=== PATIENT | female | born 1935 | race Caucasian/White ===

== ENCOUNTER 2017-07-22 10:00 | Inpatient (IN) | payer MEDICAID, MEDICARE ==
[2017-07-22 10:48] LABS: Basophils % (Auto) 0.6 % (0.0-1.8); Eosinophils % (Auto) 0.8 % (0.0-4.3); Hematocrit 29.9 % (30.3-42.9); Hemoglobin 9.4 gm/dl (10.1-14.3); Lymphocytes # (Auto) 1.3 K/mm3 (1.2-5.4); Lymphocytes % (Auto) 27.1 % (13.4-35.0); Mean Corpuscular HGB Conc 32 % (30-34); Monocytes # (Auto) 0.5 K/mm3 (0.0-0.8); Monocytes % (Auto) 9.3 % (0.0-7.3); Platelet Count 172 K/mm3 (140-440); Red Blood Count 4.72 M/mm3 (3.65-5.03); Red Cell Distribution Width 17.2 % (13.2-15.2)
[2017-07-22 10:50] LABS: Mean Corpuscular Hemoglobin 20 pg (28-32); Mean Corpuscular Volume 63 fl (79-97)
[2017-07-22 10:59] LABS: INR 0.97 (0.87-1.13)
[2017-07-22 11:02] LABS: BUN/Creatinine Ratio 14; Blood Urea Nitrogen 13 mg/dL (7-17); Calcium 9.7 mg/dL (8.4-10.2); Hemolysis Index 1
--- NOTE | 2017-07-22 11:20 | Anesthesia Consultation ---
Anesthesia Consult and Med Hx Date of service: 07/22/17 - Airway Anesthetic Teeth Evaluation: Dentures ROM Head & Neck: Adequate Mental/Hyoid Distance: Adequate Mallampati Class: Class II Intubation Access Assessment: Probably Good - Pulmonary Exam CTA: Yes - Cardiac Exam Cardiac Exam: RRR - Pre-Operative Health Status ASA Pre-Surgery Classification: ASA3 Proposed Anesthetic Plan: General - Pulmonary Hx Smoking: No Hx Asthma: No Hx Respiratory Symptoms: No SOB: No COPD: No Hx Pneumonia: No Hx Sleep Apnea: No - Cardiovascular System Hx Hypertension: Yes (HL) Hx Coronary Artery Disease: Yes (s/p coronary stent x4) Hx Heart Attack/AMI: Yes (2002) Hx Percutaneous Transluminal Coronary Angioplasty (PTCA): Yes (2003) Hx Cardia Arrhythmia: No Hx Pacemaker: No Hx Internal Defibrillator: No Hx Valvular Heart Disease: No Hx Heart Murmur: No Hx Peripheral Vascular Disease: No - Central Nervous System Hx Neuromuscular Disorder: No Hx Seizures: No CVA: No Hx Back Pain: No Hx Psychiatric Problems: No - Endocrine Hx Renal Disease: No Hx End Stage Renal Disease: No Hx Cirrhosis: No Hx Liver Disease: No Hx Insulin Dependent Diabetes: No Hx Non-Insulin Dependent Diabetes: Yes Hx Thyroid Disease: Yes Hx Hypothyroidism: Yes Hx Hyperthyroidism: No - Hematic Hx Anemia: Yes Hx Sickle Cell Disease: No - Other Systems Hx Alcohol Use: No Hx Substance Use: No Hx Cancer: No Hx Obesity: No - Additional Comments Anesthesia Medical History Comments: OA
[2017-07-25] MEDS ORDERED: ANCEF/STERILE WATER 2 GM/20 ML 2 GM/20 ML SYRINGE IV NR (06:00)
[2017-07-25] MEDS: NACL 0.9% 1000 ML 1,000 ML IV SCH ×2 (07:05→18:43)
--- NOTE | 2017-07-25 07:21 | Anesthesia Day of Surgery ---
Anesthesia Day of Surgery - Day of Surgery Patient Examined: Yes Patient H&P Reviewed: Yes Patient is NPO: Yes Beta Blockers: Yes
[2017-07-25] MEDS ORDERED: GELFOAM TP ONE ×2 (07:25→10:41)
[2017-07-25] MEDS ORDERED: RIFADIN ONE (07:25)
[2017-07-25] MEDS ORDERED: HEPARIN 10,000 UNITS/10 ML ONE (07:25)
[2017-07-25] MEDS ORDERED: PROTAMINE SULFATE ONE (07:25)
[2017-07-25] MEDS ORDERED: MARCAINE 0.5% INFILTRATI ONE ×2 (07:25→09:27)
[2017-07-25] MEDS ORDERED: XYLOCAINE 1% MPF 5 mL ONE (07:25)
[2017-07-25] MEDS ORDERED: PAPAVERINE ONE (07:25)
[2017-07-25] MEDS ORDERED: NACL 0.9% 500 ML 500 ML ONE (07:26)
[2017-07-25] MEDS ORDERED: THROMBIN (BOVINE) TP ONE ×2 (07:26→10:41)
[2017-07-25] MEDS ORDERED: XYLOCAINE MPF 2% ONE (07:30)
[2017-07-25] MEDS ORDERED: DECADRON ONE (07:37)
[2017-07-25] MEDS ORDERED: QUELICIN ONE (07:37)
[2017-07-25] MEDS ORDERED: ZEMURON IV ONE (07:37)
[2017-07-25] MEDS ORDERED: ZOFRAN ONE (07:37)
[2017-07-25] MEDS ORDERED: DIPRIVAN 10 MG/ML IV ONE (07:38)
[2017-07-25] MEDS ORDERED: SUBLIMAZE ONE (07:38)
[2017-07-25] MEDS ORDERED: NEOSTIGMINE ONE (07:39)
[2017-07-25] MEDS ORDERED: ROBINUL ONE (07:39)
[2017-07-25] MEDS ORDERED: ePHEDrine SULFATE ONE (07:39)
[2017-07-25] MEDS ORDERED: NACL 0.9% IR ONE (09:27)
[2017-07-25] MEDS ORDERED: HEPARIN 10,000 UNITS/10 ML 2,000 UNIT in NACL 0.9% 500 ML 500 ML IR ONE (09:27)
[2017-07-25] MEDS ORDERED: RIFADIN 600 MG in NACL 0.9% 50 ML IR ONE (09:28)
[2017-07-25] MEDS ORDERED: NEO SYNEPHRINE/NS Syringe(OR USE) IV ONE (10:59)
[2017-07-25] MEDS ORDERED: PROTAMINE SULFATE IV ONE (11:04)
[2017-07-25] MEDS ORDERED: NORMODYNE IV ONE (11:34)
--- NOTE | 2017-07-25 11:49 | Operative Report ---
Operative Report Operative Report: Date of procedure: 07/25/2017 Pre-operative diagnosis: Left Carotid Artery Stenosis Post-operative diagnosis: Left Carotid Artery Stenosis Procedure(s): 1. Left Carotid Endarterectomy With Patch Angioplasty 2. Intraoperative Completion Duplex Surgeon: Janes Randall MD Color Coater: None Anesthesia: General Endotracheal Anesthesia EBL: 250 mL Findings: Successful left carotid endarterectomy with normalization of left internal carotid velocities on post endarterectomy intraoperative duplex. Specimen: Left Carotid Plaque Counts: Correct Complications: None Condition: Stable Indication: The patient is a 81-year-old female with a history of carotid artery stenosis who was referred to [place] with a symptomatic carotid artery stenosis. Her workup revealed greater than 80% stenosis. Cardiology evaluation demonstrated she was an adequate candidate for surgical intervention. She was given the risks, benefits, and alternative procedures and consented to the procedure. Description of Procedure: The patient was brought to the operating room and laid in supine position. After general endotracheal anesthesia was achieved the patient was placed in beachchair position with her head elevated and turned slightly to the right. The patient's neck and chest were prepped and draped in normal fashion. An oblique incision was then created along the anterior border of the sternocleidomastoid. The incision was then carried down to the facial vein using sharp dissection. The facial vein was then dissected out circumferentially, suture ligated and divided. The dissection was then carried down to the common carotid using sharp dissection. The common carotid artery was dissected out circumferentially taking care to avoid the vagus nerve which was identified and avoided. The artery was then controlled with a large vessel loop. The dissection was carried up along the external carotid and the superficial thyroid artery was identified dissected out circumferentially and controlled with a 2-0 silk. The external carotid was dissected out and controlled a small vessel loop. I then dissected out the internal carotid artery well above the plaque which was identified by a change in hue of the artery from yellow to blue and palpation of the artery over a right angle. I controlled the internal carotid artery with a small vessel and at this point the patient was systemically heparinized with heparin IV. Once the heparin had circulated for 3 minute I clamped the internal carotid artery followed by the common carotid and then the external Carotid artery. I created an arteriotomy extending from the common carotid into the internal carotid, well above the plaque, using an 11 blade and Saul scissors. I then flashed the internal carotid artery to check for adequate backbleeding. Once ensure there was adequate backbleeding reclamped the artery and used a [place] blade to dissect the plaque away from the artery. I used a right angle to continue the dissection of this plane from lateral to medial and then divided the plaque using Saul scissors. I then trimmed the plaque proximally using Saul and then teased the plaque away from the distal endpoint insuring that there were no areas of dissection or intimal flaps. These plaque forceps to remove all loose debris and then flushed the artery with heparinized saline. I then closed the artery using the Dacron patch and two 6-0 Prolenes in running fashion. Prior to completing the closure I flushed all arteries to remove all loose debris and then flushed the artery with heparinized saline. I then completed the closure in an flashed the internal carotid, reclamped and then removed the clamp from the common carotid followed by the external carotid and allowed any loose debris to flush into the external carotid. I then removed the clamp from the internal carotid artery. Hemostasis was achieved with repair sutures with 6-0 Prolene in interrupted fashion and a combination of direct pressure with Quick Clot. Once hemostasis was achieved I performed an intraoperative duplex that demonstrated no evidence of dissection and normalization of internal carotid velocity. I then anesthetized the wound with Exparel and closed in 2 layers using a 3-0 Vicryl in running in the deep dermal layer and a 4-0 Monocryl in running in the subcuticular layer and dressed it with the Surgiseal. The patient tolerated the procedure well all sponge needle and instrument counts were correct the patient was taken to the recovery area in stable condition.
[2017-07-25] MEDS ORDERED: INTROPIN DRIP 800 MG/D5W 250 ML 800 MG/250 ML BAG IV SCH (12:00)
[2017-07-25] MEDS ORDERED: ANCEF/NS 1 GM/50 ML 1 GM/50 ML BAG IV SCH (12:00)
[2017-07-25] MEDS ORDERED: NIPRIDE 50 MG in D5W 248 ML IV SCH (12:00)
[2017-07-25] MEDS ORDERED: NACL 0.9% 1000 ML 1,000 ML IV SCH (12:00)
[2017-07-25] MEDS ORDERED: ZOFRAN IV PRN (12:13)
[2017-07-25] MEDS: DILAUDID IV PRN ×4 (12:15→13:05)
[2017-07-25] MEDS ORDERED: DILAUDID ONE (12:15)
--- NOTE | 2017-07-25 12:52 | Post Anesthesia Evaluation ---
- Post Anesthesia Evaluation Patient Participated: Yes Airway Patent: Yes Stable Respiratory Function: Yes Nausea/Vomiting: No Temp > 96.8F: Yes Pain Manageable: Yes Adequeate Hydration: Yes Anesthesia Complications: No Block Receding Appropriately: Not Applicable
--- NOTE | 2017-07-25 12:55 | Anesthesia Day of Surgery ---
Anesthesia Day of Surgery - Day of Surgery Patient Examined: Yes Patient H&P Reviewed: Yes Patient is NPO: Yes
[2017-07-25] MEDS ORDERED: APRESOLINE IV PRN (14:41)
[2017-07-25] MEDS ORDERED: APRESOLINE ONE (14:41)
--- NOTE | 2017-07-25 14:45 | Consultation ---
History of Present Illness Consult date: 07/25/17 Requesting physician: LATOYA WELLINGTON Reason for consult: other (S/P Carotid End Arterectomy) History of present illness: PULMONARY/CCM CONSULT NOTE (Full dictation # [id number]) Please see dictated notes for full details Medications and Allergies Allergies Allergy/AdvReac Type Severity Reaction Status Date / Time atorvastatin calcium Allergy Unknown Unknown Verified 07/19/17 12:33 [From Lipitor] simvastatin [From Zocor] Allergy Unknown Unknown Verified 07/19/17 12:33 Sulfa (Sulfonamide Allergy Rash Verified 07/19/17 12:33 Antibiotics) Home Medications Medication Instructions Recorded Confirmed Last Taken Type Metformin HCl [Fortamet ER] 500 mg PO BID 02/07/13 07/22/17 07/24/17 History Simvastatin 20 mg PO QHS 02/07/13 07/22/17 07/24/17 History Aspirin [Aspirin BABY CHEW TAB] 81 mg PO QDAY #30 tab.chew 09/19/16 07/22/1710/07 06:38 Rx Levothyroxine [Synthroid] 0.05 mg PO QAM #60 tablet 09/19/16 07/22/17 07/25/17 06:38 Rx Atenolol [Tenormin] 50 mg PO DAILY 07/22/17 07/22/17 07/25/17 06:38 History Lisinopril [Zestril TAB] 5 mg PO QHS 07/22/17 07/22/17 07/24/17 History Prasugrel HCl 10 mg PO DAILY 07/22/17 07/22/17 07/24/17 History Active Meds: Active Medications Acetaminophen/Hydrocodone Bitart ([place] 5/325) 1 each PO Q6H PRN PRN Reason: Pain, Moderate (4-6) Atenolol (Tenormin) 50 mg PO DAILY SOCO Clopidogrel Bisulfate (Plavix) 75 mg PO QDAY SOCO Docusate Sodium (Colace) 100 mg PO BID SOCO Hydralazine HCl (Apresoline) 5 mg IV Q30MIN PRN PRN Reason: Hypertension Cefazolin Sodium (Ancef/Sterile Water 2 Gm/20 Ml) 2 gm in 20 mls @ 80 mls/hr IV PREOP NR; Protocol Stop: 07/25/17 23:00 Sodium Chloride (Nacl 0.9% 1000 Ml) 1,000 mls @ 42 mls/hr IV DIRECT SOCO Last Admin: 07/25/17 07:05 Dose: 42 mls/hr Dopamine HCl/Dextrose (Intropin Drip 800 Mg/D5w 250 Ml) 800 mg in 250 mls @ 1.854 mls/hr IV TITR SOCO; Protocol Sodium Nitroprusside 50 mg/ (Dextrose) 250 mls @ 3.7 mls/hr IV TITR SOCO; Protocol Sodium Chloride (Nacl 0.9% 1000 Ml) 1,000 mls @ 100 mls/hr IV DIRECT SOCO Cefazolin Sodium 1 gm/ Sodium (Chloride) 20 mls @ 2 mls/min IV Q8H SOCO Stop: 07/26/17 00:09 Insulin Aspart (Novolog) 0 units SUB-Q ACHS SOCO; Protocol Levothyroxine Sodium (Synthroid) 50 mcg PO DAILY@0600 SOCO Lisinopril (Zestril) 5 mg PO QHS [facility] Metformin HCl (Glucophage Xr) 500 mg PO BID SOCO Ondansetron HCl (Zofran) 4 mg IV ONCE PRN PRN Reason: Nausea And Vomiting Pravastatin Sodium (Pravachol) 40 mg PO QHS [facility] Physical Examination Vital signs: Vital Signs Temp Pulse Resp BP 98.2 F 68 18 144/78 07/22/17 10:25 07/22/17 10:25 07/22/17 10:25 07/22/17 10:25 Results - Laboratory Findings CBC and BMP: 07/22/17 10:35 07/22/17 10:35 PT/INR, D-dimer PT 13.4 Sec. (12.2-14.9) 07/22/17 10:35 INR 0.97 (0.87-1.13) 07/22/17 10:35 Abnormal lab findings: Abnormal Labs 07/22/17 07/22/17 07/25/17 10:35 10:35 07:09 Hgb 9.4 L Hct 29.9 L MCV 63 L MCH 20 L RDW 17.2 H [place] % (Auto) 9.3 H Glucose 147 H POC Glucose 130 H 07/25/17 07/25/17 12:32 14:14 Hgb Hct MCV MCH RDW [place] % (Auto) Glucose POC Glucose 226 H 174 H
[2017-07-25] MEDS ORDERED: PROVENTIL IH PRN (16:07)
--- NOTE | 2017-07-25 17:54 | XRay Report ---
FINAL REPORT PROCEDURE: Chest. TECHNIQUE: Portable AP view. HISTORY: hypoxemia; ? Atelectasis COMPARISON: No prior studies are available for comparison. FINDINGS: The heart and mediastinum appear normal. There is dense calcification and moderate tortuosity in the thoracic aorta. The lungs are grossly clear. There are no pleural effusions. The soft tissues are unremarkable. Median sternotomy wires are present. IMPRESSION: No evidence of acute cardiopulmonary disease.
[2017-07-25] MEDS: NORCO 5/325 PO PRN ×2 (18:09→23:07)
[2017-07-25] MEDS: NOVOLOG SUB-Q SCH ×2 (18:57→23:14)
[2017-07-25] MEDS: ceFAZolin 1 GM in NACL 0.9% 20 ML IV SCH (19:02)
[2017-07-25] MEDS ORDERED: METFORMIN HCL 500 MG PO SCH (22:00)
[2017-07-25] MEDS ORDERED: NON-FORMULARY (Simvastatin [Simvastatin] 20 MG) PO SCH (22:00)
[2017-07-25] MEDS: ZESTRIL PO SCH (23:06)
[2017-07-25] MEDS: COLACE PO SCH (23:06)
[2017-07-25] MEDS: GLUCOPHAGE XR PO SCH ×2 (23:06→23:15)
[2017-07-25] MEDS: PEPCID PO SCH (23:07)
[2017-07-25] MEDS: PRAVACHOL PO SCH (23:07)
[2017-07-26] MEDS: ceFAZolin 1 GM in NACL 0.9% 20 ML IV SCH (00:54)
[2017-07-26 05:00] LABS: Basophils % (Auto) 0.1 % (0.0-1.8); Eosinophils % (Auto) 0.1 % (0.0-4.3); Hematocrit 21.1 % (30.3-42.9); Hemoglobin 6.7 gm/dl (10.1-14.3); Lymphocytes # (Auto) 0.9 K/mm3 (1.2-5.4); Lymphocytes % (Auto) 10.5 % (13.4-35.0); Mean Corpuscular HGB Conc 32 % (30-34); Monocytes # (Auto) 0.9 K/mm3 (0.0-0.8); Monocytes % (Auto) 11.1 % (0.0-7.3); Platelet Count 137 K/mm3 (140-440); Red Blood Count 3.33 M/mm3 (3.65-5.03); Red Cell Distribution Width 17.2 % (13.2-15.2)
[2017-07-26 05:05] LABS: Mean Corpuscular Hemoglobin 20 pg (28-32); Mean Corpuscular Volume 63 fl (79-97)
--- NOTE | 2017-07-26 05:13 | Consultation ---
PULMONARY CRITICAL CARE CONSULTATION NOTE CONSULTING PHYSICIAN: Janes Randall M.D. REASON FOR CONSULTATION: Requests ICU admission, status post left carotid endarterectomy for hemodynamic monitoring. CHIEF COMPLAINT AND HISTORY OF PRESENT ILLNESS: The patient is a 81-year-old, I believe, [place] lady with past medical history significant amongst other things for a diagnosis of hypertension, hyperlipidemia, but also bilateral carotid artery stenosis. Seems she was brought in today for an elective left carotid endarterectomy. It was an uneventful surgery. No significant hemodynamic swings intraoperatively. Status post left carotid ____ with patch angioplasty, ICU admission is requested. When I stopped by to see her, she was on supplemental oxygen at 2 liters nasal cannula. She denied being on home oxygen. She denied any chest pains. She denied any palpitations. She denied any nausea, vomiting, fevers or chills. She is a little bit obese. When asked about history of snoring or obstructive sleep apnea diagnoses, she said, I should ask her kids. This really is as much of the history of presentation, I should mention that with regards to tobacco use/abuse history, she is a never smoker. PAST MEDICAL HISTORY: Essential hypertension, gastroesophageal reflux disease, bilateral carotid artery stenosis, hypertension, hyperlipidemia, history of diabetes. She is obese. PAST SURGICAL HISTORY: She is status post coronary artery bypass grafting; according to the records, also a history of cholecystectomy. MEDICATIONS: She was on at the time I stopped by to see her, according to the medication administration record included the following: [place] 5/325 one tablet p.o. every 6 hours p.r.n. moderate pain; Tenormin 50 mg p.o. daily; Ancef 2 grams IV preop and 2 grams IV every 8 hours scheduled; Plavix 75 mg p.o. daily; docusate sodium 100 mg p.o. b.i.d.; dopamine drip had been used intraoperatively, 2 mcg per kilogram per minute; hydralazine 5 mg IV every 30 minutes p.r.n. hypertension, used intraoperatively; insulin via sliding scale; Levoxyl 50 mcg p.o. daily; lisinopril 5 mg p.o. at bedtime; metformin 500 mg p.o. b.i.d.; Zofran 4 mg IV p.r.n. nausea and vomiting; pravastatin 40 mg p.o. at bedtime. ALLERGIES: TO ATORVASTATIN, TO SIMVASTATIN, TO SULFA, ANTIBIOTICS, NATURE OF THESE ALLERGIES UNKNOWN. DIET: Obese lady. She denies significant weight loss or gain in the preceding few weeks to months. FAMILY AND SOCIAL HISTORY: Apparently, lives in the community. She is with kids. She denies alcohol, tobacco, or illicit drug use or abuse. Family history is positive for diabetes and heart disease in her father. REVIEW OF SYSTEMS: No loss of consciousness. No new onset seizures. No new onset focal weakness. No gross hematochezia or melena. No gross hematuria. She denies dysuria. No hematemesis. No palpitations. No hemoptysis, no seizures. Complete 13 review of systems obtained, pertinent positives and/or negatives as in the body of history above, otherwise they are noncontributory. PHYSICAL EXAMINATION: VITAL SIGNS: At the time I saw her, temperature 97.2 degrees Fahrenheit, pulse of 63, respiratory rate of 11, blood pressure 173/69, oxygen sats were 100% that was on 2 liters nasal cannula. GENERAL: The patient is an elderly looking female, looks her stated age, normocephalic, atraumatic, talking to me in slightly interrupted sentences, mild respiratory distress at worst. HEAD, EYES, EARS, NOSE AND THROAT: She is anicteric. No conjunctival erythema. Oropharynx is a Mallampati #3. She is partially edentulous, her oropharynx is moist. No gross jugular venous distention. The left carotid artery postop scar looks clean, mild erythema, mildly tender. Grossly, no palpable lymph nodes in the supraclavicular or submandibular lymph node chains. LUNGS: Auscultation of both lung ricks significant for diminished bilateral breath sounds, diminished bibasilar air entry; however, no wheezing, slightly prolonged expiratory phase. HEART: Sounds 1 and 2 are heard at the time of my evaluation, regular rate and rhythm. No rubs, no murmurs. ABDOMEN: Soft, full, bowel sounds are positive, nontender. No palpable hepatosplenomegaly. EXTREMITIES: Without overt digital clubbing, cyanosis, or pedal edema. NEUROLOGIC: Dorsalis pedis pulses are palpable bilaterally. Pupils were equal, round, about 2-3 mm, reactive to light. Extraocular muscle movements appeared intact. She moved all 4 extremities spontaneously. SKIN: Normal turgor, no cellulitis, no rash. LABORATORY DATA: From my review are as follows: From the 2nd of the month white cell count 4900, hemoglobin 9.4, hematocrit 29.9, platelet 172. INR was 0.97. Serum sodium was 139, potassium 4.4, chloride 101, bicarbonate 28, BUN 13, creatinine 0.9, glucose 147. I do not have any microbiology studies. I do not have radiographic studies. ASSESSMENT AND PLAN: 1. Atherosclerotic vascular disease with bilateral carotid stenosis, status post left carotid endarterectomy. 2. Acute hypoxemic respiratory failure, on supplemental oxygen 2 liters nasal cannula at this point. 3. Hyperlipidemia. 4. Diabetes. 5. Obesity. 6. Essential hypertension. 7. Anemia, microcytic. PLAN: We will offer her admission to the Intensive Care Unit for close hemodynamic monitoring, especially in the first 24 hours postop. Supplemental oxygen will be continued and weaned to keep sats greater than or equal to about 90%. Aspiration precautions will be maintained. I have encouraged her to take deep breaths. Incentive spirometry will be started, it is unclear the reason for the diminished bibasilar air entry and diminished breath sounds bilaterally. I will order a portable chest x-ray as a screen, in the meantime, incentive spirometry will be deployed pulse or minus bilevel positive air pressure ventilation therapy. Aspiration precautions will be maintained. I will get a serum iron level; she may benefit from iron supplementation in light of her microcytic anemia. She will continue her chronic disease medications as ordered. I will also be beginning her on GI prophylaxis, especially in light of the history of her gastroesophageal reflux disease. I have advised her to get Sleep Clinic evaluation post discharge and glycemic control will be via sliding scale insulin. Flu and pneumonia vaccination will be per protocol. Thank you very much for the consult. We will follow along. We will make further recommendations as picture progresses/becomes clearer. I will be reviewing the chest x-ray as soon as it is done. JOB# [id number] RAFIQ/TG
[2017-07-26] MEDS: SYNTHROID PO SCH (07:13)
[2017-07-26] MEDS: NORCO 5/325 PO PRN ×2 (09:34→21:25)
[2017-07-26] MEDS: PEPCID PO SCH ×2 (09:34→21:25)
[2017-07-26] MEDS: COLACE PO SCH ×2 (09:35→21:25)
[2017-07-26] MEDS ORDERED: PLAVIX PO SCH (10:00)
[2017-07-26] MEDS ORDERED: NACL 0.9% 500 ML 500 ML IV ONE (10:00)
[2017-07-26] MEDS ORDERED: TENORMIN PO SCH (10:00)
[2017-07-26] MEDS ORDERED: PRASUGREL HCL 10 MG PO SCH (10:00)
[2017-07-26] MEDS ORDERED: EFFIENT PO SCH (10:00)
[2017-07-26] MEDS ORDERED: NACL 0.9% 500 ML 500 ML ONE (13:55)
[2017-07-26] MEDS: NOVOLOG SUB-Q SCH ×2 (13:59→21:27)
--- NOTE | 2017-07-26 16:22 | Progress Note ---
Assessment and Plan - Patient Problems (1) Postoperative carotid endarterectomy surveillance, encounter for Current Visit: Yes Status: Acute Plan to address problem: Continue with hemodynamic monitoring Continue cardioprotective measures Statin therapy Increase activity as tolerated (2) Anemia due to blood loss, acute Current Visit: Yes Status: Acute Plan to address problem: Transfuse Monitor hemodynamics (3) Atypical chest pain Current Visit: No Status: Acute Plan to address problem: Get 12 lead EKG Continue with PPI for GERD Subjective Date of service: 07/26/17 Principal diagnosis: post left carotid endarterectomy Interval history: No acute overnight events. Seen and discussed on ICU interdisciplinary rounds. Vitals, labs, medications, chart reviewed. No acute overnight events. She had some non-specific chest pain/burning today. While ambulating was light headed Objective Vital Signs - 12hr 07/26/17 07/26/17 07/26/17 05:00 06:00 07:00 Temperature Pulse Rate 100 H Respiratory 13 Rate Blood Pressure 116/54 95/41 112/49 O2 Sat by Pulse 99 99 99 Oximetry 07/26/17 07/26/17 08:00 12:00 Temperature 98.0 F 98.2 F Pulse Rate 107 H Respiratory 19 Rate Blood Pressure 112/49 O2 Sat by Pulse 99 Oximetry Constitutional: no acute distress Eyes: non-icteric ENT: oropharynx dry Neck: supple, other (Left neck induration and swelling. Mil tenderness, ecchymosis) Effort: normal Ascultation: Bilateral: diminished breath sounds Cardiovascular: regular rate and rhythm, other (S1,S2 ) Gastrointestinal: normoactive bowel sounds, soft, non-tender, non-distended Integumentary: normal Extremities: no cyanosis, no edema, pink and warm, pulses normal, no ischemia or petechiae Neurologic: normal mental status, non-focal exam, pupils equal and round, CN II- XII normal, motor strength normal and Psychiatric: mood appropriate, affect normal CBC and BMP: 07/26/17 04:05 07/22/17 10:35 ABG, PT/INR, D-dimer: PT/INR, D-dimer PT 13.4 Sec. (12.2-14.9) 07/22/17 10:35 INR 0.97 (0.87-1.13) 07/22/17 10:35 Abnormal lab findings: Abnormal Labs 0307/22/17 07/25/17 10:35 10:35 07:00 RBC Hgb 9.4 L Hct 29.9 L MCV 63 L MCH 20 L RDW 17.2 H Plt Count Lymph % (Auto) [place] % (Auto) 9.3 H Lymph # [place] # Seg Neutrophils % Glucose 147 H POC Glucose Crossmatch See Detail 07/25/17 07/25/17 07/25/17 07:09 12:32 14:14 RBC Hgb Hct MCV MCH RDW Plt Count Lymph % (Auto) [place] % (Auto) Lymph # [place] # Seg Neutrophils % Glucose POC Glucose 130 H 226 H 174 H Crossmatch 07/25/17 07/26/17 07/26/17 21:44 02:26 04:05 RBC 3.33 L Hgb 6.7 L Hct 21.1 L MCV 63 L MCH 20 L RDW 17.2 H Plt Count 137 L Lymph % (Auto) 10.5 L [place] % (Auto) 11.1 H Lymph # 0.9 L [place] # 0.9 H Seg Neutrophils % 78.2 H Glucose POC Glucose 261 H 159 H Crossmatch Allied health notes reviewed: nursing
--- NOTE | 2017-07-26 18:46 | Progress Note ---
Assessment and Plan Pt s/p L CEA POD 1 Doing well at present, but reports of CP earlier. CBC suggests acute blood loss anemia, and transfusion of PRBC ordered. Continue to watch in the ICU for now. Addendum: Pt with elevated temp after 1st unit. Hold second unit for now. - Patient Problems (1) Carotid stenosis, left Current Visit: Yes Status: Acute (2) Anemia due to blood loss, acute Current Visit: Yes Status: Acute Subjective Date of service: 07/26/17 Principal diagnosis: post left carotid endarterectomy Interval history: Pt evaluated earlier today. OOB to chair. No complaints at that point. Reports of chest pain earlier. Objective - Constitutional Vitals: Vital Signs - 12hr 07/26/17 07/26/17 07/26/17 07:00 08:00 12:00 Temperature 98.0 F 98.2 F Pulse Rate 107 H Respiratory 19 Rate Blood Pressure 112/49 112/49 O2 Sat by Pulse 99 99 Oximetry 07/26/17 16:00 Temperature 98.2 F Pulse Rate Respiratory Rate Blood Pressure O2 Sat by Pulse Oximetry General appearance: Present: no acute distress - EENT Eyes: EOM intact ENT: hearing intact - Neck Neck: supple (eccymosis with mod swelling. Incision intact without erythema or drainage.) - Respiratory Respiratory effort: normal (unlabored at rest on room air) - Cardiovascular Heart rate: 96 Rhythm: regular Extremities: no ischemia - Neurologic Neurologic: no focal deficits - Psychiatric Psychiatric: appropriate mood/affect, intact judgment & insight, cooperative - Labs CBC & Chem 7: 07/26/17 04:05 07/22/17 10:35 Labs: Abnormal lab results 07/25/17 07/25/17 07/26/17 Range/Units 07:00 21:44 02:26 RBC (3.65-5.03) M/mm3 Hgb (10.1-14.3) gm/dl Hct (30.3-42.9) % MCV (79-97) fl MCH (28-32) pg RDW (13.2-15.2) % Plt Count (140-440) K/mm3 Lymph % (Auto) (13.4-35.0) % [place] % (Auto) (0.0-7.3) % Lymph # (1.2-5.4) K/mm3 [place] # (0.0-0.8) K/mm3 Seg Neutrophils % (40.0-70.0) % POC Glucose 261 H 159 H (70-105) Crossmatch See Detail 07/26/17 07/26/17 07/26/17 Range/Units 04:05 08:04 11:53 RBC 3.33 L (3.65-5.03) M/mm3 Hgb 6.7 L (10.1-14.3) gm/dl Hct 21.1 L (30.3-42.9) % MCV 63 L (79-97) fl MCH 20 L (28-32) pg RDW 17.2 H (13.2-15.2) % Plt Count 137 L (140-440) K/mm3 Lymph % (Auto) 10.5 L (13.4-35.0) % [place] % (Auto) 11.1 H (0.0-7.3) % Lymph # 0.9 L (1.2-5.4) K/mm3 [place] # 0.9 H (0.0-0.8) K/mm3 Seg Neutrophils % 78.2 H (40.0-70.0) % POC Glucose 149 H 140 H (70-105) Crossmatch 07/26/17 Range/Units 16:49 RBC (3.65-5.03) M/mm3 Hgb (10.1-14.3) gm/dl Hct (30.3-42.9) % MCV (79-97) fl MCH (28-32) pg RDW (13.2-15.2) % Plt Count (140-440) K/mm3 Lymph % (Auto) (13.4-35.0) % [place] % (Auto) (0.0-7.3) % Lymph # (1.2-5.4) K/mm3 [place] # (0.0-0.8) K/mm3 Seg Neutrophils % (40.0-70.0) % POC Glucose 198 H (70-105) Crossmatch
[2017-07-26] MEDS: ZESTRIL PO SCH (21:24)
[2017-07-26] MEDS: PRAVACHOL PO SCH (21:25)
[2017-07-27] MEDS: BENADRYL IV ONE ×2 (01:56→03:45)
[2017-07-27] MEDS: SYNTHROID PO SCH ×2 (05:17→06:36)
[2017-07-27 08:46] LABS: Hematocrit 25.7 % (30.3-42.9); Hemoglobin 8.3 gm/dl (10.1-14.3)
--- NOTE | 2017-07-27 08:48 | Progress Note ---
Assessment and Plan s/p L CEA POD 2 BP controlled left neck ecchymosis stable. will f/u H/H d/c home most likely later today Subjective Date of service: 07/27/17 Principal diagnosis: post left carotid endarterectomy Interval history: Patient denies any pain, no headache. She is eating well, ambulating well Objective - Exam Narrative Exam: echhymosis at the left neck area stable, some sweling, no discharghe. Incision c /d/i - Constitutional Vitals: Vital Signs - 12hr 07/26/17 07/26/17 07/26/17 21:00 21:24 21:25 Temperature Pulse Rate 107 H 82 Respiratory 12 18 Rate Blood Pressure 122/51 122/51 07/26/17 07/26/17 07/26/17 22:03 23:00 23:33 Temperature Pulse Rate 109 H 75 77 Respiratory 20 12 Rate Blood Pressure 122/51 105/36 105/36 07/26/17 07/27/17 07/27/17 23:50 00:01 01:00 Temperature 98.8 F Pulse Rate 79 75 Respiratory 13 16 Rate Blood Pressure 106/49 135/53 07/27/17 07/27/17 07/27/17 02:01 03:01 04:00 Temperature 98.4 F Pulse Rate 74 Respiratory 17 Rate Blood Pressure 143/76 143/76 134/49 07/27/17 07/27/17 05:01 06:01 Temperature Pulse Rate Respiratory Rate Blood Pressure 115/58 177/87 - Labs CBC & Chem 7: 07/26/17 04:05 07/22/17 10:35 Labs: Abnormal lab results 07/25/17 07/26/17 07/26/17 Range/Units 07:00 08:04 11:53 POC Glucose 149 H 140 H (70-105) Crossmatch See Detail 07/26/17 07/26/17 Range/Units 16:49 21:09 POC Glucose 198 H 160 H (70-105) Crossmatch
[2017-07-27 09:15] VITALS: BP 145/56
--- NOTE | 2017-07-27 09:46 | Discharge Summary ---
Providers - Providers Date of Admission: 07/25/17 06:15 Date of discharge: 07/27/17 Attending physician: LATOYA WELLINGTON 07/25/17 11:49 Consult to Physician [CONS] Routine Consulting Provider: DUTCH HORAN Reason For Exam: Critical Care Management Was contact made?: No Primary care physician: GRAHAM HASSAN Hospitalization Reason for admission: patient admitted after left CEA Condition: Good Procedures: left CEA Hospital course: Postoperative course was complicated by acute blood loss anemia, that resolved with blood transfusion. Patient was observed in ICU and was stable. Disposition: DC-01 TO HOME OR SELFCARE Core Measure Documentation - Palliative Care Palliative Care/ Comfort Measures: Palliative Care/Comfort Measures Exam - Physical Exam Narrative exam: echhymosis at the left neck area stable, some sweling, no discharge. Incision c/ d/i - Constitutional Vitals: Temp Pulse Resp BP Pulse Ox 99.0 F 74 17 145/56 97 07/27/17 08:00 07/27/17 03:01 07/27/17 03:01 07/27/17 08:29 07/26/17 16:00 Plan Activity: advance as tolerated Diet: regular Wound: open to air Special Instructions: no heavy lifting Follow up with: GRAHAM HASSAN MD [Primary Care Provider] - 7 Days LATOYA WELLINGTON MD [Staff Physician] - 14 Days Prescriptions: HYDROcodone/APAP 5-325 [[place] 5-325 mg TAB] 1 each PO Q6H PRN #20 tablet PRN Reason: Pain, Moderate (4-6)
[2017-07-27] MEDS: NOVOLOG SUB-Q SCH (10:18)
[2017-07-27] MEDS: NORCO 5/325 PO PRN (10:39)
[2017-07-28] MEDS ORDERED: GLUCOPHAGE XR PO SCH (08:00)
== END 2017-07-27 11:39 | disposition home health service (06) | DRG 37 ==
LOC: 3A 07-25 06:15 → CC1 07-25 12:20
PROVIDERS: ADMIT Surgery Vascular Surgery; ATTEND Surgery Vascular Surgery
PROC: 03CJ0ZZ Extirpation of Matter from Left Common Carotid Artery, Open Approach (ICD-10-PCS; principal; 2017-07-25)
PROC: 03CL0ZZ Extirpation of Matter from Left Internal Carotid Artery, Open Approach (ICD-10-PCS; 2017-07-25)
PROC: 03UJ0JZ Supplement Left Common Carotid Artery with Synthetic Substitute, Open Approach (ICD-10-PCS; 2017-07-25)
PROC: 03UL0JZ Supplement Left Internal Carotid Artery with Synthetic Substitute, Open Approach (ICD-10-PCS; 2017-07-25)
PROC: 30233N1 Transfusion of Nonautologous Red Blood Cells into Peripheral Vein, Percutaneous Approach (ICD-10-PCS; 2017-07-26)
DX: I65.22 Occlusion and stenosis of left carotid artery (principal); J96.01 Acute respiratory failure with hypoxia; I10 Essential (primary) hypertension; E03.9 Hypothyroidism, unspecified; E11.9 Type 2 diabetes mellitus without complications; D62 Acute posthemorrhagic anemia; I25.10 Atherosclerotic heart disease of native coronary artery without angina pectoris; K21.9 Gastro-esophageal reflux disease without esophagitis; E78.00 Pure hypercholesterolemia, unspecified; Z95.5 Presence of coronary angioplasty implant and graft; I25.2 Old myocardial infarction; Z88.8 Allergy status to other drugs, medicaments and biological substances; Z88.2 Allergy status to sulfonamides; Z79.82 Long term (current) use of aspirin; Z79.84 Long term (current) use of oral hypoglycemic drugs; Z79.899 Other long term (current) drug therapy; Z95.1 Presence of aortocoronary bypass graft; Z90.49 Acquired absence of other specified parts of digestive tract
CPT/HCPCS: 36415; 36620; 71045; 80048; 82962; 85014; 85018; 85025; 85610; 86850; 86900; 86901; 86920; 88304; 88311; 93005; 93010; A4649; A9270-GY; C1768; J0330; J0360; J0690; J1100; J1170; J1200; J1644; J1815; J2370; J2405; J2440; J2704; J2710; J2720; J3010; J3490; J7030; J7040; P9016

== ENCOUNTER 2018-10-19 07:04 | Observation (INO) | payer MEDICARE ==
[2018-10-19] MEDS ORDERED: ECOTRIN PO ONE (07:40)
[2018-10-19] MEDS: NACL 0.9% 500 ML 500 ML IV SCH ×3 (08:11→09:45)
[2018-10-19 08:17] LABS: Hematocrit 28.8 % (30.3-42.9); Hemoglobin 9.3 gm/dl (10.1-14.3); Mean Corpuscular HGB Conc 32 % (30-34); Platelet Count 150 K/mm3 (140-440); Red Blood Count 4.59 M/mm3 (3.65-5.03); Red Cell Distribution Width 17.6 % (13.2-15.2)
[2018-10-19 08:20] LABS: Mean Corpuscular Volume 63 fl (79-97)
[2018-10-19 08:32] LABS: INR 1.02 (0.87-1.13)
[2018-10-19] MEDS ORDERED: HEPARIN 10,000 UNITS/10 ML ONE (08:32)
[2018-10-19] MEDS ORDERED: CALAN ONE (08:32)
[2018-10-19] MEDS ORDERED: NITROGLYCERIN SYRINGE 3 ML ONE (08:33)
[2018-10-19] MEDS: SUBLIMAZE ONE ×2 (09:34→09:44)
[2018-10-19] MEDS: VERSED ONE ×2 (09:34→09:44)
[2018-10-19] MEDS: XYLOCAINE 2% INFILTRATI ONE ×3 (09:34→09:48)
[2018-10-19] MEDS: HEPARIN/NS 5000 UNIT/500ML(CATH LAB) 1,000 ML IR ONE ×2 (09:35→09:45)
[2018-10-19 09:42] LABS: Total Cells Counted 100
[2018-10-19 09:43] LABS: Anisocytosis 1+; Hypochromasia 2+; Large Platelets Few; Platelet Estimate Consistent w Auto
[2018-10-19] MEDS ORDERED: HEPARIN/NS 5000 UNIT/500ML(CATH LAB) 500 ML IR ONE (10:09)
[2018-10-19] MEDS ORDERED: ALUM-MAG HYDROX-SIMETH 200-200-20MG/5ML ONE (10:34)
[2018-10-19] MEDS ORDERED: EFFIENT PO ONE (10:34)
--- NOTE | 2018-10-19 11:11 | Cardiac Catherization Report ---
CARDIAC CATHETERIZATION REFERRING PHYSICIAN: Jeromy Gomes MD INDICATION FOR PROCEDURE: The patient is a very pleasant 82-year-old female with history of aggressive heart disease, multiple PCIs, coronary bypass surgery, recurrent chest pain with very typical features, has a history of malnutrition and anemia, tried to manage her medically, but she continues to have chest tightness, and again, she has had multiple PCIs over the years. Informed consent was obtained. DESCRIPTION OF PROCEDURE: The patient was brought to the fence laborer in a postabsorptive state, prepped and draped in sterile fashion. An 8 mL of 2% lidocaine used to anesthetize the right groin. A standard 6-Swedish sheath used to cannulate the right common femoral artery via modified Seldinger technique. All exchanges performed to exchange a J-tip guidewire. JL3.5 catheter used to engage the left main. No dampening or ventricularization. Cineangiography performed in all projections. JR4 catheter was used to cross the aortic valve under fluoroscopic guidance. Left ventriculography performed in 30 KINSEY and 30 YAKUT projections via hand injections, catheter flushed. Manual pullback performed with continuous pressure monitoring. Catheter used to engage the right coronary. No dampening or ventricularization. Cineangiography performed in all projections. Next, catheter was used to engage all 3 SVGs. Cineangiography performed in all projections. Next, catheter was used to engage the left subclavian and advanced carefully over wire. MELGOZA angiography was attempted. Selective third order left subclavian angiography was performed. Next, catheter was removed from the subclavian carefully over the wire. DATA: Aortic pressure is 170/60, LV pressure is 170. LVEDP of 12 mmHg. Left ventriculography reveals normal systolic performance with estimated ejection fraction of 55% to 60%. No evidence of aortic stenosis. Normal LVEDP. The patient remained in normal sinus rhythm throughout the procedure. CORONARY ANATOMY: Left main is a vessel with a 20% to 30% disease distally, however the LAD is occluded proximally. Left circumflex is occluded proximally as well. These are chronic total occlusions. Right coronary with a mid chronic total occlusion. SVG to right coronary is widely patent. Stent in the proximal SVG is widely patent. Next, the SVG to second diagonal is widely patent with some backfilling to the LAD. The SVG to first diagonal with a 90% in-stent restenosis in the proximal edge of the long stent in the proximal and mid SVG, this was ulcerated and most likely the culprit lesion. Again, unable to identify MELGOZA despite multiple angiograms of the left subclavian. There are collaterals seen from the distal right coronary to the LAD. At this point, given recurrent symptoms despite multiple anginal medications and culprit lesion in the proximal SVG to first diagonal, it was decided to proceed with PCI. Heparin given. Abnormal ACT is confirmed. Used a JR4 guide to engage the SVG without difficulty, also wire to cross the lesion without difficulty, predilated the lesion with a 2.5 x 12 balloon. Stented with a 2.75 x 12 [place] drug-eluting stent. Excellent angiographic result. Intravascular ultrasound was performed and multiple passes were made, reveals a well-expanded, well-opposed stent, postdilated with a 2.75 balloon. Good result, SIERRA 3 flow. There were no complications. CONCLUSIONS: 1. Severe [place]monak epicardial and bypass graft disease noted. A. Chronic total occlusion of proximal LAD. B. Chronic total occlusion of proximal left circumflex. C. Chronic total occlusion of mid right coronary. D. 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 2. Successful IVUS guided PCI placement of [place] 2.75 x 12 with excellent final angiographic and ultrasonographic result. 3. Patent SVG to right coronary. 4. Patent SVG to second diagonal. 5. Occluded MELGOZA to LAD. 6. Selective left subclavian angiography without evidence of patent MELGOZA. 7. Normal left ventricular systolic performance, estimated ejection fraction of 55% to 60%. No evidence of aortic stenosis. Normal LVEDP. At this point, continue aggressive medical management, optimal medical therapy discussed with the patient and children. Continue aspirin, Effient. Malnutrition and chronic anemia are a large concern, see her Gastroenterology for this. We will watch her closely. Standard groin care. Follow up with me in the office. ADDENDUM I directly supervised administration of moderate sedation of Fentanyl and Versed from 9:41 a.m. to 10:35 a.m. JOB# [id number] SBM/NTS
[2018-10-19] MEDS ORDERED: D50W (25GM) Syringe IV PRN (13:03)
[2018-10-19] MEDS ORDERED: PRAVACHOL PO SCH (22:00)
[2018-10-19] MEDS ORDERED: ZESTRIL PO SCH ×3 (22:00)
[2018-10-19] MEDS: TENORMIN PO SCH (22:50)
[2018-10-20] MEDS ORDERED: SYNTHROID PO SCH ×2 (06:00→10:00)
[2018-10-20 08:11] VITALS: BP 168/80
[2018-10-20] MEDS: HumaLOG SUB-Q SCH ×2 (08:39→13:36)
--- NOTE | 2018-10-20 08:44 | XRay Report ---
AP CHEST: HISTORY: Post PCI Previous CABG changes are suspected. AP view of the chest demonstrates a normal mediastinal and cardiac contour with clear lungs and normal bony and soft tissue structures. No change since 07/25/17. IMPRESSION: Unremarkable AP chest.
[2018-10-20] MEDS ORDERED: BABY ASPIRIN PO SCH (10:00)
[2018-10-20] MEDS ORDERED: TENORMIN PO SCH (10:00)
[2018-10-20] MEDS ORDERED: EFFIENT PO SCH (10:00)
--- NOTE | 2018-10-20 10:01 | Short Stay Summary ---
Short Stay Documentation Date of service: 10/20/18 - History H&P: obtained from office - Allergies and Medications Current Medications: Allergies atorvastatin Allergy (Verified 10/19/18 07:39) Unknown Sulfa (Sulfonamide Antibiotics) Allergy (Verified 07/19/17 12:33) Rash sulfamethoxazole [From Bactrim] Allergy (Verified 10/19/18 09:05) Vomiting nausea trimethoprim [From Bactrim] Allergy (Verified 10/19/18 09:05) Vomiting Nausea Home Medications Medication Instructions Recorded Confirmed Last Taken Type Metformin HCl [Fortamet ER] 1,000 mg PO BID 02/07/13 10/19/18 10/18/18 History 500mg Aspirin [Aspirin BABY CHEW TAB] 81 mg PO QDAY #30 tab.chew 09/19/16 10/19/18 10/18/18 Rx 81mg Levothyroxine [Synthroid] 0.05 mg PO QAM #60 tablet 09/19/16 10/19/18 10/18/18 Rx 0.05mg Atenolol [Tenormin] 50 mg PO DAILY 07/22/17 10/19/18 10/18/18 History 50mg Lisinopril [Zestril TAB] 5 mg PO QHS 07/22/17 10/19/18 10/18/18 History 5mg Prasugrel HCl 10 mg PO DAILY 07/22/17 10/19/18 10/18/18 History 10mg Active Medications Aspirin (Baby Aspirin) 81 mg PO QDAY [facility] Atenolol (Tenormin) 25 mg PO BID [facility] Last Admin: 10/19/18 22:50 Dose: 25 mg Documented by: Dextrose (D50w (25gm) Syringe) 50 ml IV PRN PRN PRN Reason: Hypoglycemia Insulin Human Lispro (Humalog) 0 unit SUB-Q [facility]; Protocol Last Admin: 10/20/18 08:39 Dose: Not Given Documented by: Levothyroxine Sodium (Synthroid) 50 mcg PO DAILY@0600 [facility] Last Admin: 10/20/18 06:21 Dose: 50 mcg Documented by: Lisinopril (Zestril) 10 mg PO QHS [facility] Last Admin: 10/19/18 22:49 Dose: 10 mg Documented by: Prasugrel (Effient) 10 mg PO QDAY [facility] Pravastatin Sodium (Pravachol) 40 mg PO QHS [facility] Last Admin: 10/19/18 22:51 Dose: 40 mg Documented by: - Brief post op/procedure progress note Date of procedure: 10/19/18 Pre-op diagnosis: CAD Post-op diagnosis: same Procedure: LHC with PCI - see dictated cath report Anesthesia: local Estimated blood loss: none Condition: stable - Hospital course Hospital course: Pt is 82 YO female with a past medical history of CAD s/p CABG, HTN, HLP, DM, PVD. She presented for scheduled elective LHC and subsequently underwent PCI. She was admitted for observation overnight. She has remained clinically and hemodynamically stable throughout her hospitalization and is medically stable for discharge home today. - Disposition Condition at discharge: Good Disposition: DC-01 TO HOME OR SELFCARE - Discharge Diagnoses (1) CAD (coronary artery disease) Status: Chronic (2) Stented coronary artery Status: Chronic (3) Hx of CABG Status: Chronic (4) HTN (hypertension) Status: Chronic (5) Diabetes mellitus Status: Chronic (6) Hyperlipidemia Status: Chronic Short Stay Discharge Plan Activity: advance as tolerated Diet: low fat, low cholesterol, low salt, diabetic Wound: open to air, keep clean and dry, per your surgeon's advice Follow up with: DELFINA ALVA MD [Primary Care Provider] - 7 Days NILSON ACEVEDO MD [Staff Physician] - 7 Days ([place] office, 11/02/2018 @ 1:15PM) Prescriptions: Prasugrel HCl 10 mg PO DAILY #30 tablet
[2018-10-20] MEDS: TENORMIN PO SCH (10:12)
== END 2018-10-20 14:57 | disposition home or self-care (01) ==
LOC: CATHLABREC 07:04 → 4A 11:17
PROVIDERS: ADMIT Internal Medicine; ATTEND Internal Medicine
DX: I25.10 Atherosclerotic heart disease of native coronary artery without angina pectoris (principal); I10 Essential (primary) hypertension; E11.9 Type 2 diabetes mellitus without complications; E78.5 Hyperlipidemia, unspecified
CPT/HCPCS: 36415; 71045; 80048; 82962; 85007; 85025; 85347; 85610; 85730; 92978; 93005; 93010; 93459; A9270; C1725; C1753; C1769; C1874; C1887; C1894; C9604; G0378; J1644; J2250; J3010; J7040; 92937; 96374; 96375; Q9967

== ENCOUNTER 2021-07-19 08:18 | Emergency (ER) | payer MEDICARE ==
[2021-07-19] MEDS ORDERED: ASPIRIN 325 MG TAB PO ONE (08:33)
[2021-07-19] MEDS ORDERED: ONDANSETRON 4 MG/2 ML INJ IV ONE (09:05)
--- NOTE | 2021-07-19 09:10 | Emergency Department Report ---
ED General Adult HPI - General Chief complaint: Chest Pain Stated complaint: VOMITING/CHEST AND NECK PAIN Time Seen by Provider: 07/19/21 08:52 Source: patient, family Mode of arrival: Ambulatory Limitations: No Limitations - History of Present Illness Initial comments: Patient presents with chest pain. Intermittently for the last 3 weeks she has had episodes where she feels full when she eats. She has some discomfort from the throat into the chest area sternally. She states that she starts to vomit and throw up. Patient has had no cough associated with this. There is no hematemesis or coffee-ground emesis. Has no melenic stool. Patient has not had symptoms prior to the last several weeks. Her family is with her. They state that she was having pain "in the arteries in her neck." They also report that the patient was complaining of discomfort before she started to throw up. There has been no recent travel. Patient denies recent injury. - Related Data Home Medications Medication Instructions Recorded Confirmed Last Taken Metformin HCl [Fortamet ER] 1,000 mg PO BID 02/07/13 07/19/21 07/18/21 lisinopriL [Zestril TAB] 5 mg PO QHS 07/22/17 07/19/21 07/19/21 Previous Rx's Medication Instructions Recorded Last Taken Type Aspirin [Aspirin BABY CHEW TAB] 81 mg PO QDAY tab.chew 10/20/18 07/18/21 Rx Levothyroxine [Synthroid] 50 mcg PO DAILY@0600 tablet 10/20/18 07/18/21 Rx Prasugrel [Effient] 10 mg PO QDAY tablet 10/20/18 07/18/21 Rx Pravastatin [Pravachol] 40 mg PO QHS tablet 10/20/18 07/18/21 Rx atenoloL [Tenormin] 25 mg PO BID tablet 10/20/18 07/19/21 Rx Metoclopramide [Reglan] 10 mg PO ACHS #60 tablet 07/19/21 Unknown Rx Allergies Allergy/AdvReac Type Severity Reaction Status Date / Time atorvastatin Allergy Unknown Verified 10/19/18 07:39 Sulfa (Sulfonamide Allergy Rash Verified 07/19/17 12:33 Antibiotics) sulfamethoxazole Allergy Vomiting Verified 10/19/18 09:05 [From Bactrim] trimethoprim [From Bactrim] Allergy Vomiting Verified 10/19/18 09:05 ED Review of Systems ROS: Stated complaint: VOMITING/CHEST AND NECK PAIN Other details as noted in HPI Comment: All other systems reviewed and negative Constitutional: denies: fever Eyes: denies: vision change ENT: denies: ear pain Respiratory: denies: cough Cardiovascular: as per HPI Endocrine: denies: unexplained weight loss Gastrointestinal: as per HPI Genitourinary: denies: dysuria Musculoskeletal: denies: back pain Skin: denies: rash Neurological: denies: headache Hematological/Lymphatic: denies: easy bruising ED Past Medical Hx - Past Medical History Previous Medical History?: Yes Hx Hypertension: Yes Hx Heart Attack/AMI: Yes (2002) Hx Congestive Heart Failure: No Hx Diabetes: Yes Hx GERD: Yes Hx Liver Disease: No Hx Renal Disease: No Hx Sickle Cell Disease: No Hx Arthritis: Yes (hand, feet) Hx Seizures: No Hx Kidney Stones: Yes Hx Asthma: No Hx COPD: No Hx Dementia: No Hx HIV: No Additional medical history: cardiac stents. CAD. HIGH CHOLESTEROL. THYROID. ANEMIA - Surgical History Past Surgical History?: Yes Hx Coronary Stent: Yes Hx Open Heart Surgery: Yes Hx Pacemaker: No Hx Internal Defibrillator: No Hx Cholecystectomy: Yes Additional Surgical History: RIGHT EYE SURGERY - Family History Family history: hypertension - Social History Smoking Status: Never Smoker Substance Use Type: Prescribed - Medications Home Medications: Home Medications Medication Instructions Recorded Confirmed Last Taken Type Metformin HCl [Fortamet ER] 1,000 mg PO BID 02/07/13 07/19/21 07/18/21 History lisinopriL [Zestril TAB] 5 mg PO QHS 07/22/17 07/19/21 07/19/21 History Aspirin [Aspirin BABY CHEW TAB] 81 mg PO QDAY tab.chew 10/20/18 07/19/21 07/18/21 Rx Levothyroxine [Synthroid] 50 mcg PO DAILY@0600 tablet 10/20/18 07/19/21 07/18/21 Rx Prasugrel [Effient] 10 mg PO QDAY tablet 10/20/18 07/19/21 07/18/21 Rx Pravastatin [Pravachol] 40 mg PO QHS tablet 10/20/18 07/19/21 07/18/21 Rx atenoloL [Tenormin] 25 mg PO BID tablet 10/20/18 07/19/21 07/19/21 Rx Metoclopramide [Reglan] 10 mg PO ACHS #60 tablet 07/19/21 Unknown Rx ED Physical Exam - General Limitations: Physical Limitation (Poor historian), Other (Pulse ox noted and normal) General appearance: alert, in no apparent distress - Head Head exam: Present: atraumatic, normocephalic, normal inspection - Eye Eye exam: Present: normal appearance, PERRL, EOMI. Absent: scleral icterus - ENT ENT exam: Present: normal orophraynx, normal external ear exam - Neck Neck exam: Present: normal inspection. Absent: meningismus - Respiratory Respiratory exam: Present: normal lung sounds bilaterally. Absent: respiratory distress - Cardiovascular Cardiovascular Exam: Present: regular rate, normal rhythm. Absent: JVD - GI/Abdominal GI/Abdominal exam: Present: soft. Absent: distended, tenderness, guarding, pulsatile mass - Extremities Exam Extremities exam: Absent: pedal edema, calf tenderness - Back Exam Back exam: Absent: CVA tenderness (R), CVA tenderness (L) - Neurological Exam Neurological exam: Present: alert, oriented X3, CN II-XII intact, normal gait. Absent: motor sensory deficit - Psychiatric Psychiatric exam: Present: normal affect, normal mood - Skin Skin exam: Present: warm, dry ED Course Vital Signs 07/19/21 07/19/21 07/19/21 08:31 09:19 09:29 Temperature 98 F 98 F Pulse Rate 91 H 84 Respiratory 16 18 Rate Blood Pressure 137/77 Blood Pressure 159/80 [Right] O2 Sat by Pulse 98 99 97 Oximetry 07/19/21 07/19/21 07/19/21 09:30 09:56 10:00 Temperature Pulse Rate Respiratory Rate Blood Pressure 159/80 134/73 Blood Pressure [Right] O2 Sat by Pulse 98 98 96 Oximetry 07/19/21 07/19/21 10:30 10:48 Temperature Pulse Rate 84 Respiratory 20 Rate Blood Pressure 129/71 Blood Pressure 129/71 [Right] O2 Sat by Pulse 97 97 Oximetry - Reevaluation(s) Reevaluation #1: 07/19/21 09:09 EKG was noted. Old records reviewed. IV and labs were ordered. X-ray was ordered as well. Reevaluation #2: 07/19/21 12:15 Labs have been noted and reviewed with the patient and family. She was subsequently discharged. ED Medical Decision Making - Lab Data Result diagrams: 07/19/21 09:25 07/19/21 09:25 Rhythm strip: Normal sinus rhythm without ectopy. Monitor observe 10 seconds. - EKG Data -: EKG Interpreted by Me - EKG Data 07/19/21 09:09 0847-EKG shows normal sinus rhythm at 86. Intervals are normal including a QRS of 73 and a QT corrected of 457. Patient has no ST elevation to suggest STEMI. There is no ST depression suggestive of ischemia. Patient has no ectopy noted. There is no change from prior EKG - Radiology Data Radiology results: report reviewed - Medical Decision Making Patient presented with reports of chest pain. She states that when she was eating, she developed pain in the sternal area and throat area. This was not exertional. There is no change in EKG or troponin. This is been intermittent for 3 weeks. I do not clinically believe this is cardiac. Patient had no other component that would suggest ACS such as shortness of breath, exertional symptoms, dizziness, fatigue. She was nauseous, but that could be GI related. Her lipase is elevated. She does not have epigastric tenderness on exam to suggest pulsatile mass or AAA. She does not have right upper quadrant tenderness suggestive of any type of hepatic disease or biliary disease. Patient was treated symptomatically and referred for outpatient evaluation. We have discussed dietary changes. Critical Care Time: No Critical care attestation.: If time is entered above; I have spent that time in minutes in the direct care of this critically ill patient, excluding procedure time. ED Disposition Clinical Impression: Substernal chest pain, Elevated lipase Disposition: HOME / SELF CARE / HOMELESS Is pt being admited?: No Condition: Stable Instructions: Nonspecific Chest Pain, Adult Additional Instructions: Have a bland diet. Drink plenty water. Return for problems. Follow-up with your regular doctor and your exhibit technician for recheck. Have your labs repeated. If you cannot see your regular doctor, return here for problems. Prescriptions: Metoclopramide [Reglan] 10 mg PO ACHS #60 tablet Referrals: PRIMARY CARE, [Primary Care Provider] - 3-5 Days NILSON ACEVEDO MD [Staff Physician] - 3-5 Days
--- NOTE | 2021-07-19 09:27 | XRay Report ---
CHEST 2 VIEWS INDICATION / CLINICAL INFORMATION: chest pain. COMPARISON: One view of the chest from 10/20/2018 FINDINGS: SUPPORT DEVICES: None. HEART / MEDIASTINUM: Stable. LUNGS / PLEURA: No significant pulmonary abnormality. No significant pleural effusion. No pneumothora x. ADDITIONAL FINDINGS: No significant additional findings. IMPRESSION: 1. No acute abnormality of the chest. Signer Name: Scott Ro MD Signed: 07/19/2021 9:23 AM Workstation Name: [id number]
[2021-07-19 10:09] LABS: Alanine Aminotransferase 10 units/L (7-56); Albumin 4.4 g/dL (3.9-5); BUN/Creatinine Ratio 11; Blood Urea Nitrogen 11 mg/dL (7-17); Hemolysis Index 3
[2021-07-19 10:32] LABS: Basophils % (Auto) 0.2 % (0.0-1.8); Eosinophils % (Auto) 0.5 % (0.0-4.3); Hemoglobin 10.8 gm/dl (10.1-14.3); Lymphocytes # (Auto) 1.3 K/mm3 (1.2-5.4); Lymphocytes % (Auto) 19.7 % (13.4-35.0); Mean Corpuscular HGB Conc 31 % (30-34); Monocytes # (Auto) 0.4 K/mm3 (0.0-0.8); Monocytes % (Auto) 6.4 % (0.0-7.3); Platelet Count 182 K/mm3 (140-440); Red Blood Count 5.53 M/mm3 (3.65-5.03); Red Cell Distribution Width 15.9 % (13.2-15.2)
[2021-07-19 10:34] LABS: Mean Corpuscular Volume 63 fl (79-97)
[2021-07-19 10:48] VITALS: BP 129/71
--- NOTE | 2021-07-20 10:13 | Electrocardiograph Report ---
[facility] Test Date: 2021-07-19 Test Time: 08:47:25 Pat Name: JATINDER LACY Department: Room: Gender: F Rail Operator: DIETARY DIRECTOR : [id number] Requested By: DENISSE DUMAS Order Number: [id number] Reading MD: Jeromy Gomes Measurements Intervals [place] Rate: 86 P: -46 [place]: 129 QRS: 35 QRSD: 73 T: 88 QT: 381 QTc: 457 Interpretive Statements Sinus or ectopic atrial rhythm No previous ECG available for comparison Electronically Signed On 07-20-2021 10:13:18 EST by Jeromy Gomes
== END 2021-07-19 12:30 | disposition home or self-care (01) ==
LOC: ED 08:18
DX: R07.89 Other chest pain (principal); E78.41 Elevated Lipoprotein(a); Z88.2 Allergy status to sulfonamides; I10 Essential (primary) hypertension; E11.9 Type 2 diabetes mellitus without complications
CPT/HCPCS: 36415; 71046; 80053; 83690; 84484; 85025; 93005; 93010; 96374; 99284; J2405